=== PATIENT | male | born 1985 | race Caucasian/White ===

== ENCOUNTER 2016-09-14 22:39 | Emergency (ER) | payer BC ==
[2016-09-14] MEDS ORDERED: ACETAMINOPHEN 500 MG TAB ONE (23:08)
[2016-09-14] MEDS ORDERED: IBUPROFEN 200 MG TAB PO ONE ×2 (23:08→23:20)
[2016-09-14] MEDS ORDERED: ACETAMINOPHEN 500 MG TAB PO ONE (23:20)
--- NOTE | 2016-09-14 23:46 | EDPHY ---
H & P Stated Complaint: pt c/o fever since yesterday, cough Time Seen by Provider: 09/14/16 23:12 HPI/ROS: Chief Complaint: Fever, body ache HPI: 31-year-old male presenting with 2 days of fever, body aches, general malaise. No cough, no shortness of breath, no nausea vomiting or diarrhea. No abdominal pain. He has been taking acetaminophen twice today with some relief. Has been traveling on air flights for the last 2 days with multiple flights trying to come to [place] from [place]. No long. Will with ability. No calf pain or swelling. Patient's has been suffering from similar symptoms. ROS: 10 point Review of Systems is negative except as noted in the HPI. PMH: None Medications: None Allergies: None Social History: No smoking, occasional alcohol, no recreational drug use Family History: non-contributory Physical Exam: Gen: Awake, Alert, No Distress HEENT: Nose: no rhinorrhea Eyes: PERRLA, EOMI Mouth: Moist mucosa Neck: Supple, no JVD Chest: nontender, lungs clear to auscultation Heart: S1, S2 normal, no murmur Abd: Soft, non-tender, no guarding Back: no CVA tenderness, no midline tenderness Ext: no edema, non-tender Skin: no rash Neuro: CN II-XII intact, Sensation grossly intact, Strength 5/5 in bilateral upper and lower extremities - Personal History Current Tetanus/Diphtheria Vaccine: No Current Tetanus Diphtheria and Acellular Pertussis (TDAP): No - Medical/Surgical History Hx Asthma: No Hx Chronic Respiratory Disease: No Hx Diabetes: No Hx Cardiac Disease: No Hx Renal Disease: No Hx Cirrhosis: No Hx Alcoholism: No Hx HIV/AIDS: No Hx Splenectomy or Spleen Trauma: No Other PMH: vitaligo, appendectomy - Social History Smoking Status: Never smoked Constitutional: Initial Vital Signs Temperature (C) 39.5 C H 09/14/16 22:50 Heart Rate 132 H 09/14/16 22:50 Respiratory Rate 20 09/14/16 22:50 Blood Pressure 100/61 09/14/16 22:50 O2 Sat (%) 92 09/14/16 22:50 O2 Delivery Mode Room Air Allergies/Adverse Reactions: No Known Allergies Allergy (Unverified 09/14/16 22:49) Home Medications: Medication Instructions Recorded Tylenol 09/14/16 Medical Decision Making ED Course/Re-evaluation: 31-year-old male with viral upper respiratory symptoms. Lungs are clear. No focal bacterial infection noted. Patient is improved with antipyretics. Will discharge with alternating acetaminophen with ibuprofen. Follow up with his physician in 3-4 days if symptoms are not improving, return for worsening. - Data Points Medications Given: Discontinued Medications Acetaminophen (Tylenol) 1,000 mg PO EDNOW ONE Stop: 09/14/16 23:21 Last Admin: 09/14/16 23:27 Dose: 1,000 mg Ibuprofen (Motrin) 800 mg PO EDNOW ONE Stop: 09/14/16 23:21 Last Admin: 09/14/16 23:27 Dose: 800 mg Departure - Departure Disposition: Home, Routine, Self-Care Clinical Impression: Viral illness Condition: Good Instructions: Viral Syndrome (ED) Additional Instructions: Alternate acetaminophen with ibuprofen every 3-4 hours as needed for fevers, chills, aches or pains. Follow up with her primary care physician in 3-4 days if symptoms are not improving. Return to the emergency depart for increasing shortness of breath, cough, nausea , vomiting, uncontrolled fevers or chills, or any other concerns. Referrals: NONE *PRIMARY CARE P,. [Primary Care Provider] - As per Instructions
[2016-09-15 00:05] VITALS: PULSE 112; RESP 17; TEMP 102.4
[2016-09-15 00:43] VITALS: BP 100/58; O2SAT 94
== END 2016-09-15 00:43 | disposition home or self-care (01) ==
DX: B34.9 Viral infection, unspecified (principal)